=== PATIENT | male | born 1990 | race Caucasian/White ===

== ENCOUNTER 2016-11-16 12:43 | Emergency (ER) | payer SELFPAY ==
--- NOTE | 2016-11-16 12:59 | EDPHY ---
H & P Stated Complaint: dizzy, CP, SOB, starting 2 hours ago. Time Seen by Provider: 11/16/16 12:59 - Personal History Current Tetanus/Diphtheria Vaccine: Yes Current Tetanus Diphtheria and Acellular Pertussis (TDAP): Yes - Medical/Surgical History Hx Asthma: Yes Hx Chronic Respiratory Disease: No Hx Diabetes: No Hx Cardiac Disease: No Hx Renal Disease: No Hx Cirrhosis: No Hx Alcoholism: No Hx HIV/AIDS: No Hx Splenectomy or Spleen Trauma: No Other PMH: pmh:asthma as child. psh:none - Social History Smoking Status: Current every day smoker Constitutional: Initial Vital Signs Temperature (C) 36.4 C 11/16/16 12:49 Heart Rate 95 11/16/16 12:49 Respiratory Rate 26 H 11/16/16 12:49 Blood Pressure 89/69 L 11/16/16 12:49 O2 Sat (%) 100 11/16/16 12:49 O2 Delivery Mode Room Air Allergies/Adverse Reactions: No Known Allergies Allergy (Unverified 11/16/16 12:49) Home Medications: Medication Instructions Recorded NK [No Known Home Meds] 11/16/16 Medical Decision Making ED Course/Re-evaluation: CHIEF COMPLAINT: Dizziness, exhaustion HISTORY OF PRESENT ILLNESS: The patient is a 26 y/o male, with a history of childhood asthma and anxiety, complaining of dizziness, eye burning, and exhaustion while working outside today. He states he has occasional intermittent breathing difficult that he attributes to his asthma. He does use an inhaler for these symptoms. He has vomited twice and has difficulty slowing his breathing down. He states it may be "more of a panic thing." He also complains of eye burning, but was wearing sunglasses and denies possible foreign body. No changes to his vision. 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 Denies trauma, chest pain, dyspnea, fever. Heavy smoker. REVIEW OF SYSTEMS: A 10 point review of systems was performed and is negative with the exception of the elements mentioned in the history of present illness. PHYSICAL EXAM: HR, BP, O2 Sat, RR. Temp noted General Appearance: Alert, well hydrated, anxious, diaphoretic, and non-toxic appearing. Head: Atraumatic without scalp tenderness or obvious injury Eyes: Pupils equal, round, reactive to light and accommodation, EOMI, no trauma , mild bilateral injection. Ears: Clear bilaterally, no perforation, normal landmarks Nose: Atraumatic, no rhinorrhea, clear. Throat: Mucus membranes moist. Neck: Supple, nontender, no lymphadenopathy. Respiratory: No retractions, no distress, no wheezes, and no accessory muscle use. Lungs are clear to auscultation bilaterally. Mildly tachypneic. Cardiovascular: Regular rate and rhythm, no murmurs, rubs, or gallops. Good capillary refill all extremities. Gastrointestinal: Abdomen is soft, nontender, non-distended, no masses, no rebound, no guarding, no peritoneal signs. Musculoskeletal: Normal active ROM of all extremities, atraumatic. Neurological: Alert, appropriate, and interactive. Nonfocal neuro exam. Skin: No rashes, good turgor, no nodules on palpation. Past medical history: Blindness of right eye, asthma as a child, anxiety Past surgical history: noncontributory Family history: noncontributory Social history: Works in construction as a retail stock clerk, former , cigarette and marijuana smoker. DIAGNOSTICS/PROCEDURES/CRITICAL CARE TIME: The 12 lead EKG was interpreted by myself. Sinus rhythm rate 85. See hard copy and/or "tracemaster" electronic copy for interpretation. DIFFERENTIAL DIAGNOSIS: The differential diagnosis for the patient's dizziness included but was not limited to peripheral and central causes of vertigo, orthostatic causes including dehydration, cardiogenic and neurogenic causes, and blood loss. MEDICAL DECISION MAKING: This is a 26 y/o male with a history of anxiety and asthma who presents complaining of exhaustion and dizziness after working outside in the heat. He is perspiring on exam and has moist mucous membranes, which indicates he does not have severe heat exhaustion. He is mildly tachypneic without wheezing and appears quite anxious. His HR is 85. Plan for IV fluids, labs, UA, and EKG. 2L IV NS and 1mg IV Ativan administered. EKG and labs unremarkable. Patient feels completely improved upon reassessment. He states, "sometimes my anxiety gets ahead of me" and feels ready for discharge home. His vitals are stable and exam unremarkable. Recommended standard dehydration and anxiety care instructions with referral to PCP for follow up. Return precautions given. - Data Points Laboratory Results: Laboratory Results 11/16/16 13:13 11/16/16 13:13 11/16/16 11/16/16 11/16/16 13:34 13:13 13:13 WBC 6.87 10^3/uL 10^3/uL (3.80-9.50) RBC 6.11 10^6/uL 10^6/uL (4.40-6.38) Hgb 18.2 g/dL H g/dL (13.7-17.5) POC Hgb 15.0 gm/dL gm/dL (13.7-17.5) Hct 50.8 % % (40.0-51.0) POC Hct 44 % % (40-51) MCV 83.1 fL fL (81.5-99.8) MCH 29.8 pg pg (27.9-34.1) MCHC 35.8 g/dL g/dL (32.4-36.7) RDW 13.3 % % (11.5-15.2) Plt Count 213 10^3/uL 10^3/uL (150-400) MPV 11.3 fL fL (8.7-11.7) Neut % (Auto) 56.5 % % (39.3-74.2) Lymph % (Auto) 30.4 % % (15.0-45.0) [place] % (Auto) 10.2 % % (4.5-13.0) Eos % (Auto) 2.0 % % (0.6-7.6) Baso % (Auto) 0.6 % % (0.3-1.7) Nucleat RBC Rel Count 0.0 % % (0.0-0.2) Absolute Neuts (auto) 3.88 10^3/uL 10^3/uL (1.70-6.50) Absolute Lymphs (auto) 2.09 10^3/uL 10^3/uL (1.00-3.00) Absolute Monos (auto) 0.70 10^3/uL 10^3/uL (0.30-0.80) Absolute Eos (auto) 0.14 10^3/uL 10^3/uL (0.03-0.40) Absolute Basos (auto) 0.04 10^3/uL 10^3/uL (0.02-0.10) Absolute Nucleated RBC 0.00 10^3/uL 10^3/uL (0-0.01) Immature Gran % 0.3 % % (0.0-1.1) Immature Gran # 0.02 10^3/uL 10^3/uL (0.00-0.10) POC Sodium 143 mEq/L mEq/L (134-144) Sodium 136 mEq/L mEq/L (134-144) POC Potassium 2.9 mEq/L L mEq/L (3.3-5.0) Potassium 3.5 mEq/L mEq/L (3.5-5.2) POC Chloride 105 mEq/L mEq/L (97-110) Chloride 102 mEq/L mEq/L (97-110) Carbon Dioxide 18 mEq/l L mEq/l (22-31) Anion Gap 16 mEq/L mEq/L (8-16) POC BUN 20 mg/dL mg/dL (7-23) BUN 20 mg/dL mg/dL (7-23) Creatinine 1.3 mg/dL mg/dL (0.7-1.3) POC Creatinine 1.3 mg/dL mg/dL (0.7-1.3) Estimated GFR > 60 Glucose 75 mg/dL mg/dL (70-100) POC Glucose 74 mg/dL mg/dL (70-100) Calcium 10.5 mg/dL H mg/dL (8.5-10.4) Medications Given: Discontinued Medications Sodium Chloride (Ns) 1,000 mls @ 0 mls/hr IV ONCE ONE; Wide Open PRN Reason: Protocol Stop: 11/16/16 13:09 Last Admin: 11/16/16 13:23 Dose: 1,000 mls Sodium Chloride (Ns) 1,000 mls @ 0 mls/hr IV ONCE ONE; Wide Open PRN Reason: Protocol Stop: 11/16/16 13:09 Last Admin: 11/16/16 13:23 Dose: 1,000 mls Lorazepam (Ativan Injection) 1 mg IVP EDNOW ONE Stop: 11/16/16 13:09 Last Admin: 11/16/16 13:24 Dose: 1 mg Point of Care Test Results: 11/16/16 13:34 POC Sodium 143 POC Potassium 2.9 L POC Chloride 105 POC BUN 20 POC Creatinine 1.3 POC Glucose 74 Departure - Departure Disposition: Home, Routine, Self-Care Clinical Impression: Dehydration, Anxiety Heat exhaustion Qualifiers: Encounter type: initial encounter Qualified Code(s): T67.5XXA - Heat exhaustion , unspecified, initial encounter Condition: Good Instructions: Dehydration (ED), Anxiety (ED) Additional Instructions: 1. Increase fluid intake, particularly while working outside. 2. Decrease marijuana and nicotine use as this can contribute to anxiety. 3. Follow up with your primary care provider for unimproved symptoms over the next 2-3 days. 4. Return to the ED for worsening of condition. Referrals: NONE *PRIMARY CARE P,. [Primary Care Provider] - As per Instructions [facility],. [Clinic] - As per Instructions Report Scribed for: Jerome Banks Report Scribed by: Salima Rockwell Date of Report: 11/16/16 Time of Report: 12:59
--- NOTE | 2016-11-16 13:07 | CPEKG ---
Heart Rate: 85 RR Interval: 706 P-R Interval: 180 QRSD Interval: 90 QT Interval: 384 QTC Interval: 457 P [place]: 84 QRS [place]: 60 T Wave [place]: 11 EKG Severity - NORMAL ECG - EKG Impression: SINUS RHYTHM Electronically Signed By: Jerome Banks 16-Nov-2016 20:46:08
[2016-11-16] MEDS ORDERED: NS 1,000 ML IV ONE ×2 (13:08)
[2016-11-16] MEDS ORDERED: LORazepam 2 MG/ML INJ IVP ONE (13:08)
[2016-11-16 13:22] LABS: % IMMATURE GRANULYOCYTES 0.3 % (0.0-1.1); ABSOLUTE IMMATURE GRANULOCYTES 0.02 10^3/uL (0.00-0.10); ADD DIFF? NO; ADD MORPH? NO; ADD SCAN? NO; ATYPICAL LYMPHOCYTE FLAG 50 (0-99); FRAGMENT RBC FLAG 0 (0-99); HEMATOCRIT 50.8 % (40.0-51.0); HEMOGLOBIN 18.2 g/dL (13.7-17.5); LEFT SHIFT FLG 0 (0-99); LIPEMIA HEMOLYSIS FLAG 90 (0-99); MEAN CELL HEMOGLOBIN 29.8 pg (27.9-34.1); MEAN CELL HEMOGLOBIN CONCENTR. 35.8 g/dL (32.4-36.7); MEAN CELL VOLUME 83.1 fL (81.5-99.8); MEAN PLATELET VOLUME 11.3 fL (8.7-11.7); PLATELET CLUMPS FLAG 20 (0-99); PLATELET COUNT 213 10^3/uL (150-400); RED BLOOD CELL COUNT 6.11 10^6/uL (4.40-6.38); RED CELL DISTRIBUTION WIDTH 13.3 % (11.5-15.2)
[2016-11-16 13:39] LABS: ANION GAP 16 mEq/L (8-16); CALCIUM 10.5 mg/dL (8.5-10.4); CARBON DIOXIDE 18 mEq/l (22-31); CHLORIDE 102 mEq/L (97-110); CREATININE 1.3 mg/dL (0.7-1.3); GLOMERULAR FILTRATION RATE > 60; GLUCOSE 75 mg/dL (70-100); POTASSIUM 3.5 mEq/L (3.5-5.2); SODIUM 136 mEq/L (134-144)
[2016-11-16 14:31] VITALS: RESP 18; O2SAT 96
[2016-11-16 15:44] VITALS: BP 116/68; PULSE 67; TEMP 98.1
== END 2016-11-16 15:45 | disposition home or self-care (01) ==
DX: T67.5XXA Heat exhaustion, unspecified, initial encounter (principal); E86.0 Dehydration; F41.9 Anxiety disorder, unspecified; E86.9 Volume depletion, unspecified; J45.909 Unspecified asthma, uncomplicated; F17.200 Nicotine dependence, unspecified, uncomplicated
CPT/HCPCS: 82947-QW; 96374; J2060